=== PATIENT | male | born 1975 | race Caucasian/White ===

== ENCOUNTER 2019-02-10 18:27 | Inpatient (IN) ==
[2019-02-10] MEDS ORDERED: Ipratropium/Albuterol Neb 3 ML IH ONE (19:16)
--- NOTE | 2019-02-10 19:27 | Emergency Department Note ---
Disposition Clinical Impression: Multifocal pneumonia Sepsis Qualifiers: Sepsis type: sepsis due to unspecified organism Qualified Code(s): A41.9 - Sepsis, unspecified organism Pneumonia Qualifiers: Pneumonia type: due to unspecified organism Laterality: bilateral Lung location : unspecified part of lung Qualified Code(s): J18.9 - Pneumonia, unspecified organism Disposition: Admitted As Inpatient Condition: Fair Referrals: Priyanka Mukherjee CNP [Primary Care Provider] - Forms: ED Satisfaction Letter Time of Disposition: 21:03 General Adult HPI - General Chief complaint: ED Shortness of Breath/Dyspnea Stated complaint: Cough/Body aches Time Seen by Provider: 02/10/19 19:06 Source: patient, family Mode of arrival: ambulatory Limitations: no limitations Nursing Notes Reviewed: Yes Vital Signs Reviewed: Yes - History of Present Illness HPI Narrative: Patient is a 43-year-old male that presents emergency Department reports of shortness of breath. Patient is ongoing for the past couple of days. Patient denies any chest pain but states that he has generalized body aches and just does not feel well. Patient states that he has had a productive cough with clear sputum. Patient states that he feels like he is unable to catch his breath. Patient states that he is never really had anything like this before. Patient states that she is otherwise healthy. Patient states that he has had a low-grade fever of 99 at home. 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 Patient states that he has not been coughing up any blood. Patient states that he just feels like he cannot breathe normally. Pain Scale: 5 - Related Data Allergies Allergy/AdvReac Type Severity Reaction Status Date / Time acetaminophen [From Vicodin] Allergy Difficulty Verified 02/10/19 18:37 Breathing hydrocodone [From Vicodin] Allergy Difficulty Verified 02/10/19 18:37 Breathing All systems ED: reviewed and negative except as stated. Constitutional: Reports: fever, other (Generalized body aches) Cardiovascular: Denies: chest pain Respiratory: Reports: cough, dyspnea, sputum production. Denies: hemoptysis Gastrointestinal: Reports: nausea, vomiting. Denies: abdominal pain, diarrhea Genitourinary: Denies: urgency, dysuria, frequency Past Medical History - Past Medical History Medical history: Reports: no medical history Psychiatric history: Reports: no psych history - Social History Smoking Status: Current every day smoker Alcohol use: Reports: occasionally Drug use: Reports: none Physical Exam - General Limitations: no limitations General appearance: alert, in no apparent distress - Head Head exam: atraumatic, normocephalic - Eye Eye exam: Present: normal appearance, EOMI - Neck Neck exam: Present: normal inspection, full ROM, trachea midline - Respiratory Respiratory exam: Present: normal lung sounds bilaterally, other (Decreased air movement bilaterally). Absent: respiratory distress, wheezes - Cardiovascular Cardiovascular exam: Present: normal rhythm, tachycardia, normal heart sounds, +S1, +S2 - Abdominal Exam Abdominal exam: Present: soft, Non-Tender, normal bowel sounds - Neurological Exam Neurological exam: Present: alert, oriented X3 - Psychiatric Psychiatric exam: Present: normal affect, normal mood - Skin Skin exam: Present: warm, dry, intact Course Vital Signs Temperature 98.6 F 02/10/19 18:32 Pulse Rate 112 02/10/19 18:32 Respiratory Rate 19 02/10/19 18:32 Blood Pressure 112/69 02/10/19 18:32 O2 Sat by Pulse Oximetry 91 02/10/19 18:32 Temperature 98.6 F 02/10/19 18:32 Pulse Rate 112 02/10/19 18:32 Respiratory Rate 16 02/10/19 19:37 Blood Pressure 112/69 02/10/19 18:32 O2 Sat by Pulse Oximetry 92 02/10/19 19:37 Oxygen Delivery Oxygen Delivery Room Air Medical Decision Making - [facility] Narrative Medical decision making narrative: Due the patient presents emergency Department with reports of body aches cough and reports a fever at home and influenza swab was obtained at triage which is negative. We will also obtain basic laboratory testing as well as chest x-ray and EKG here in the emergency department. We will also provide the patient with a DuoNeb breathing treatment. Patient does have an elevated white blood cell count of 22.4. Based on his vital signs and his white blood cell count patient does meet surge criteria. The CTA of the chest did not show evidence of pulmonary emboli but is suggestive of multifocal pneumonia. Patient will be started on antibiotics and will be given 2 L of IV fluids. Patient will be admitted to the hospital for further evaluation and management of his sepsis secondary to pneumonia. Called spoke the admitting hospitalist Dr. Francisco and he requested that the patient be given a dose of vancomycin as well as started on maintenance fluids. Patient will be admitted to the hospital at this time for further evaluation and management of his sepsis and pneumonia. - Medical Records Medical records reviewed: Yes I reviewed the patient's medical records. - Lab Data Lab results reviewed: Yes I reviewed the patient's lab results. Result diagrams: 02/10/19 19:27 02/10/19 19:27 Lab Results 02/10/19 02/10/19 02/10/19 Range/Units 19:27 19: 19:27 WBC 22.4 H (4.3-11.1) K/mcL RBC 4.91 (4.19-5.50) M/mcL Hgb 15.5 (12.9-16.9) g/dL Hct 44.8 (37.5-50.1) % MCV 91.2 (83.0-100.0) fL MCH 31.6 (28.0-33.3) pg MCHC 34.6 (31.6-35.5) g/dL RDW 13.6 (11.5-14.5) % Plt Count 230 (140-400) K/mcL MPV 8.5 L (9.4-12.4) fL Immature Gran % 0.5 (0-4) % Seg Neutrophils % 86.1 % Lymphocytes % 6.4 % Monocytes % 6.5 % Eosinophils % 0.2 % Basophils % 0.3 % Neutrophils # 19.3 H (1.6-8.9) K/mcL Lymphocytes # 1.4 (0.6-4.6) K/mcL Monocytes # 1.5 H (0.0-1.3) K/mcL Eosinophils # 0.1 (0.0-0.6) K/mcL Basophils # 0.1 (0.0-0.2) K/mcL D-Dimer 915 H (0-500) ng/mLFEU Sodium 137 (136-145) mEq/L Potassium 4.1 (3.5-5.1) mEq/L Chloride 107 (98-107) mEq/L Carbon Dioxide 22 L (23-29) mEq/L BUN 16 (6-20) mg/dL Creatinine 0.91 (0.70-1.30) mg/dL Est GFR ( Amer) > 60 (> 60) Est GFR (Non-Af Amer) > 60 (> 60) BUN/Creatinine Ratio 18 (6-26) Glucose 105 (70-105) mg/dL Calculated Osmolality 286 (280-300) Calcium 9.3 (8.6-10.3) mg/dL Troponin I < 0.03 (< 0.04) ng/mL B-Natriuretic Peptide (Less than 100) pg/mL 02/10/19 Range/Units 19:27 WBC (4.3-11.1) K/mcL RBC (4.19-5.50) M/mcL Hgb (12.9-16.9) g/dL Hct (37.5-50.1) % MCV (83.0-100.0) fL MCH (28.0-33.3) pg MCHC (31.6-35.5) g/dL RDW (11.5-14.5) % Plt Count (140-400) K/mcL MPV (9.4-12.4) fL Immature Gran % (0-4) % Seg Neutrophils % % Lymphocytes % % Monocytes % % Eosinophils % % Basophils % % Neutrophils # (1.6-8.9) K/mcL Lymphocytes # (0.6-4.6) K/mcL Monocytes # (0.0-1.3) K/mcL Eosinophils # (0.0-0.6) K/mcL Basophils # (0.0-0.2) K/mcL D-Dimer (0-500) ng/mLFEU Sodium (136-145) mEq/L Potassium (3.5-5.1) mEq/L Chloride (98-107) mEq/L Carbon Dioxide (23-29) mEq/L BUN (6-20) mg/dL Creatinine (0.70-1.30) mg/dL Est GFR ( Amer) (> 60) Est GFR (Non-Af Amer) (> 60) BUN/Creatinine Ratio (6-26) Glucose (70-105) mg/dL Calculated Osmolality (280-300) Calcium (8.6-10.3) mg/dL Troponin I (< 0.04) ng/mL B-Natriuretic Peptide 19 (Less than 100) pg/mL - Radiology Data Radiology results reviewed: Yes I reviewed the patient's radiology results. Chest CTA 02/10/19 20:01 IMPRESSION: Negative for acute pulmonary embolism. Left lower lobe clustered/tree-in-bud nodularity and consolidation is suspicious for pneumonia versus aspiration sequela. Left upper lobe ground-glass abnormality may relate to the above or reflect smoking-related lung injury such as respiratory bronchiolitis given additional background centrilobular ground-glass nodularity and paraseptal emphysema which may be seen with this entity. Mediastinal/hilar lymphadenopathy is presumably reactive D/ / Elgin Jones / Elgin Jones Interpreting Provider: Elgin Jones - EKG Data EKG #1 EKG attestation: Yes I reviewed and interpreted this EKG. EKG results narrative: EKG shows a sinus tachycardia at a rate of 108 beats from it, DE interval 129, QRS duration of 87, QTc 433. No evidence of STEMI on EKG.
--- NOTE | 2019-02-10 19:43 | Emergency Department Note ---
Disposition Clinical Impression: Multifocal pneumonia Disposition: Admitted As Inpatient Condition: Good Referrals: Priyanka Mukherjee CNP [Primary Care Provider] - Forms: ED Satisfaction Letter General Adult HPI - General Chief complaint: ED Shortness of Breath/Dyspnea Stated complaint: Cough/Body aches Time Seen by Provider: 02/10/19 19:06 Source: patient, family Mode of arrival: ambulatory Limitations: no limitations - History of Present Illness Pain Scale: 5 - Related Data Allergies Allergy/AdvReac Type Severity Reaction Status Date / Time acetaminophen [From Vicodin] Allergy Difficulty Verified 02/10/19 18:37 Breathing hydrocodone [From Vicodin] Allergy Difficulty Verified 02/10/19 18:37 Breathing Constitutional: Reports: fever, other (Generalized body aches) Cardiovascular: Denies: chest pain Respiratory: Reports: cough, dyspnea, sputum production. Denies: hemoptysis Gastrointestinal: Reports: nausea, vomiting. Denies: abdominal pain, diarrhea Genitourinary: Denies: urgency, dysuria, frequency Past Medical History - Past Medical History Medical history: Reports: no medical history Psychiatric history: Reports: no psych history - Social History Smoking Status: Current every day smoker Alcohol use: Reports: occasionally Drug use: Reports: none Physical Exam - General Limitations: no limitations General appearance: alert, in no apparent distress Course Vital Signs Temperature 98.6 F 02/10/19 18:32 Pulse Rate 112 02/10/19 18:32 Respiratory Rate 19 02/10/19 18:32 Blood Pressure 112/69 02/10/19 18:32 O2 Sat by Pulse Oximetry 91 02/10/19 18:32 Temperature 98.6 F 02/10/19 18:32 Pulse Rate 112 02/10/19 18:32 Respiratory Rate 16 02/10/19 19:37 Blood Pressure 112/69 02/10/19 18:32 O2 Sat by Pulse Oximetry 92 02/10/19 19:37 Oxygen Delivery Oxygen Delivery Room Air Medical Decision Making - MDM Narrative Medical decision making narrative: IV Rocephin and IV Zithromax has been ordered for multifocal pneumonia. Patient is an active smoker. No signs of pulmonary embolus on a CT scan. Admit. - Medical Records Medical records reviewed: Yes I reviewed the patient's medical records. - Lab Data Lab results reviewed: Yes I reviewed the patient's lab results. Result diagrams: 02/10/19 19:27 02/10/19 19:27 Lab Results 02/10/19 02/10/19 02/10/19 Range/Units 19:27 19:27 19:27 WBC 22.4 H (4.3-11.1) K/mcL RBC 4.91 (4.19-5.50) M/mcL Hgb 15.5 (12.9-16.9) g/dL Hct 44.8 (37.5-50.1) % MCV 91.2 (83.0-100.0) fL MCH 31.6 (28.0-33.3) pg MCHC 34.6 (31.6-35.5) g/dL RDW 13.6 (11.5-14.5) % Plt Count 230 (140-400) K/mcL MPV 8.5 L (9.4-12.4) fL Immature Gran % 0.5 (0-4) % Seg Neutrophils % 86.1 % Lymphocytes % 6.4 % Monocytes % 6.5 % Eosinophils % 0.2 % Basophils % 0.3 % Neutrophils # 19.3 H (1.6-8.9) K/mcL Lymphocytes # 1.4 (0.6-4.6) K/mcL Monocytes # 1.5 H (0.0-1.3) K/mcL Eosinophils # 0.1 (0.0-0.6) K/mcL Basophils # 0.1 (0.0-0.2) K/mcL D-Dimer 915 H (0-500) ng/mLFEU Sodium 137 (136-145) mEq/L Potassium 4.1 (3.5-5.1) mEq/L Chloride 107 (98-107) mEq/L Carbon Dioxide 22 L (23-29) mEq/L BUN 16 (6-20) mg/dL Creatinine 0.91 (0.70-1.30) mg/dL Est GFR ( Amer) > 60 (> 60) Est GFR (Non-Af Amer) > 60 (> 60) BUN/Creatinine Ratio 18 (6-26) Glucose 105 (70-105) mg/dL Calculated Osmolality 286 (280-300) Calcium 9.3 (8.6-10.3) mg/dL Troponin I < 0.03 (< 0.04) ng/mL B-Natriuretic Peptide (Less than 100) pg/mL 02/10/19 Range/Units 19:27 WBC (4.3-11.1) K/mcL RBC (4.19-5.50) M/mcL Hgb (12.9-16.9) g/dL Hct (37.5-50.1) % MCV (83.0-100.0) fL MCH (28.0-33.3) pg MCHC (31.6-35.5) g/dL RDW (11.5-14.5) % Plt Count (140-400) K/mcL MPV (9.4-12.4) fL Immature Gran % (0-4) % Seg Neutrophils % % Lymphocytes % % Monocytes % % Eosinophils % % Basophils % % Neutrophils # (1.6-8.9) K/mcL Lymphocytes # (0.6-4.6) K/mcL Monocytes # (0.0-1.3) K/mcL Eosinophils # (0.0-0.6) K/mcL Basophils # (0.0-0.2) K/mcL D-Dimer (0-500) ng/mLFEU Sodium (136-145) mEq/L Potassium (3.5-5.1) mEq/L Chloride (98-107) mEq/L Carbon Dioxide (23-29) mEq/L BUN (6-20) mg/dL Creatinine (0.70-1.30) mg/dL Est GFR ( Amer) (> 60) Est GFR (Non-Af Amer) (> 60) BUN/Creatinine Ratio (6-26) Glucose (70-105) mg/dL Calculated Osmolality (280-300) Calcium (8.6-10.3) mg/dL Troponin I (< 0.04) ng/mL B-Natriuretic Peptide 19 (Less than 100) pg/mL - Radiology Data Radiology results reviewed: Yes I reviewed the patient's radiology results. Critical Care Time Critical Care Time: No Attestation Statement - Attestation Attestation: I examined this patient and my medical decision-making was reviewed with the Resident Physician. I agree with the documented findings, disposition and treatment plan as described except to the extent set forth below. 43 yo M here for cough, sob, flu like sx. coughing clear sputum. low grade fevers. myalgias, arthralgias. Neg flu swabs. +smoking tachy ad slightly hypoxic will check dimer and labs and cxr
[2019-02-10 19:49] LABS: Basophils # 0.1 K/mcL (0.0-0.2); Basophils % 0.3 %; Eosinophils # 0.1 K/mcL (0.0-0.6); Eosinophils % 0.2 %; Hematocrit 44.8 % (37.5-50.1); Hemoglobin 15.5 g/dL (12.9-16.9); Immature Granulocytes % 0.5 % (0-4); Lymphocytes # 1.4 K/mcL (0.6-4.6); Lymphocytes % 6.4 %; Mean Corpuscular HGB Conc 34.6 g/dL (31.6-35.5); Mean Corpuscular Hemoglobin 31.6 pg (28.0-33.3); Mean Corpuscular Volume 91.2 fL (83.0-100.0); Mean Platelet Volume 8.5 fL (9.4-12.4); Monocytes # 1.5 K/mcL (0.0-1.3); Monocytes % 6.5 %; Neutrophils # 19.3 K/mcL (1.6-8.9); Platelet Count 230 K/mcL (140-400); Red Blood Count 4.91 M/mcL (4.19-5.50); Red Cell Distribution Width 13.6 % (11.5-14.5); Segmented Neutrophils % 86.1 %
[2019-02-10 20:00] LABS: BUN/Creatinine Ratio 18 (6-26); Blood Urea Nitrogen 16 mg/dL (6-20); Calcium 9.3 mg/dL (8.6-10.3); Carbon Dioxide 22 mEq/L (23-29); Chloride 107 mEq/L (98-107); Glucose 105 mg/dL (70-105); Osmolality,Calculated 286 (280-300); Potassium 4.1 mEq/L (3.5-5.1); Sodium 137 mEq/L (136-145); Troponin I < 0.03 ng/mL (< 0.04); eGFR For Non-African Americans > 60 (> 60)
[2019-02-10] MEDS: Isovue-370 500 ML BOTTLE IVP ONE ×2 (20:25→20:26)
[2019-02-10] MEDS ORDERED: cefTRIAXone 1,000 MG in Water for inj. (sterile) 20 ML 10 ML IVP ONE (20:36)
[2019-02-10] MEDS ORDERED: Azithromycin 500 MG in D5% in Water 250 ML IVPB ONE (21:00)
[2019-02-10] MEDS ORDERED: Ondansetron 4 MG/2 ML VIAL IVP ONE (21:28)
[2019-02-10] MEDS: 0.9 % Sodium Chloride 1,000 ML IVC SCH (21:29)
[2019-02-11] MEDS: 0.9 % Sodium Chloride 1,000 ML IVC SCH ×4 (00:33→20:38)
[2019-02-11] MEDS: Acetaminophen 325 MG TABLET PO PRN (01:07)
[2019-02-11] MEDS ORDERED: Ibuprofen 400 MG TABLET PO PRN (06:32)
[2019-02-11] MEDS ORDERED: Naloxone 0.4 MG/ML INJ IVP PRN (06:32)
[2019-02-11] MEDS ORDERED: Ondansetron 4 MG/2 ML VIAL IVP PRN (06:32)
[2019-02-11] MEDS ORDERED: Albuterol 2.5 MG/3 ML NEBULIZER IH PRN (06:32)
--- NOTE | 2019-02-11 06:49 | Internal Med History&Physical ---
Date of Encounter: 02/11/19 Time of Encounter: 06:15 Internal Medicine - H&P: HPI Chief complaint: fever, cough, SOB Admitted From: Emergency Dept Plans for Post Hospital Care: Home History of present illness: Mr. Nam is a 43 year old male who presents with a three-day history of fever, cough, shortness of breath, nausea, vomiting, and malaise. He therefore came to ER for evaluation. He underwent CT angiogram of the chest as he and an elevated d-dimer. CTA of the chest was negative for PE, but it did show multifocal pneumonia. He also had an elevated white blood count and appeared to be clinically septic. Patient was given IV antibiotics for pneumonia. He was then admitted to hospitalist service. I requested they add vancomycin given his critical picture. Unfortunately, he has had no blood cultures drawn as of yet. He received 2 L of fluid resuscitation in the ER and was placed on IV fluid maintenance therapy. Upon my assessment of the patient, he appears to be ill but nontoxic. Blood pressure is borderline low, but he is not tachycardic. He appears to be well perfused nonetheless. He is mentating and acting normally. is present at bedside. She confirms above history. He denies any hemoptysis. He has had productive purulent sputum production. He is a long-time smoker but he states he is quitting now. He denies any prior history of asthma or COPD. He has never been hospitalized for any respiratory issues in the past. He has had multiple ill contacts in the recent past. Past Med Surg Social Fam HX - Past Medical History Attestation: Yes The following information was validated with the patient. Source: patient, obtained from family Medical history: no medical history Additional medical history: spinal meningitis 2013 Psychiatric history: no psych history - Past Surgical History Surgical History: no surgical history - Social History Smoking Status: Current every day smoker Packs per day: 2 Alcohol use: occasionally Drug use: none Occupational status: employed Current living situation: Home, With Family Activity Level: Independent ambulation Recent Out of Country Travel Within the Last 8 Weeks: No - Family History Mother Living Status: Still Living Hx Family Respiratory Disorders: No Father Living Status: Internal Medicine - H&P: Meds No Known Home Drugs 02/10/19 [History] Allergy/AdvReac Type Severity Reaction Status Date / Time hydrocodone [From Vicodin] Allergy Difficulty Verified 02/10/19 21:46 Breathing - Constitutional Constitutional: chills, fatigue, fever(s), malaise, no night sweats - EENT Eyes: no blurry vision, no change in vision Ears: no ear pain, no tinnitus Nose, mouth and throat: no nasal congestion, no sinus pressure, no sore throat - Cardiovascular Cardiovascular ROS IM: dyspnea, dyspnea on exertion, no chest pain, no lightheadedness, no palpitations, no paroxysmal nocturnal dyspnea, no syncope - Respiratory Respiratory: cough, dyspnea, wheezing, pain on inspiration, chest congestion, change in phlegm color, pain with cough, no hemoptysis, no excessive phlegm production - Gastrointestinal Gastrointestinal: nausea, vomiting, no abdominal pain, no diarrhea, no hematemesis, no hematochezia, no melena - Genitourinary Genitourinary ROS male: no dysuria, no flank pain, no hematuria - Musculoskeletal Musculoskeletal ROS IM: no arthralgias, no back pain, no myalgias - Integumentary Integumentary IM: no rash, no jaundice - Neurological Neurological ROS: no disequilibrium, no dizziness, no focal weakness, no frequent falls, no headache(s) - Psychiatric Psychiatric: no anxiety, no depression - Endocrine Endocrine IM: no cold intolerance, no heat intolerance, no polydipsia, no polyuria - Hematologic/Lymphatic Hematologic/Lymphatic: no easy bruising - Allergic/Immunologic Allergic/Immunologic: wheezing, no GI upset with certain foods - Constitutional Vitals: Temp Pulse Resp BP Pulse Ox 98.6 F 86 16 102/64 95 02/11/19 04:14 02/11/19 04:14 02/11/19 04:14 02/11/19 04:14 02/11/19 04:14 General appearance: Present: cooperative, mild distress, A&O X 3, pleasant, answers questions appropriately Exam: ill, non-toxic - Head Head exam: Present: atraumatic, normal inspection - Eye Eye exam: Present: EOMI, PERRL. Absent: scleral icterus Pupils: Present: normal accommodation - ENT ENT exam: Present: mucous membranes dry, normal exam, normal oropharynx - Neck Neck exam general surgery: Present: full ROM, supple, trachea midline. Absent: tenderness, nuchal rigidity, thyromegaly - Respiratory Respiratory exam: Present: accessory muscle use, rales, respiratory distress (mild), wheezes, tachypnea. Absent: chest wall tenderness, rhonchi - Cardiovascular Cardiovascular exam: Present: distant heart sounds, RRR, +S1, +S2. Absent: diastolic murmur, systolic murmur - GI/Abdominal GI/Abdominal exam: Present: normal bowel sounds, soft. Absent: guarding, hepatomegaly, mass, rebound, splenomegaly, tenderness - Extremities Exam Extremities exam: Present: normal capillary refill, warm, radial pulses palpable and symmetrical. Absent: calf tenderness, joint swelling, pedal edema, te nderness - Back Exam Back exam: Present: normal inspection. Absent: CVA tenderness (L), CVA tenderness (R) - Neurological Exam Neurological exam: Present: alert, CN II-XII intact, oriented X3, no focal deficits, strengths equal and symetr throughout - Psychiatric Psychiatric exam: Present: normal affect, normal mood - Skin Skin exam: Present: dry, intact, warm Internal Med - H&P Results - Labs CBC & Chem 7: 02/10/19 19:27 02/10/19 19:27 Labs: Short CBC 02/10/19 Range/Units 19:27 WBC 22.4 H (4.3-11.1) K/mcL Hgb 15.5 (12.9-16.9) g/dL Hct 44.8 (37.5-50.1) % Plt Count 230 (140-400) K/mcL Neutrophils # 19.3 H (1.6-8.9) K/mcL BMP 02/10/19 19:27 Sodium 137 Potassium 4.1 Chloride 107 Carbon Dioxide 22 L BUN 16 Creatinine 0.91 Glucose 105 Calcium 9.3 Cardiac Enzymes 02/10/19 Range/Units 19:27 Troponin I < 0.03 (< 0.04) ng/mL - EKG Data -: EKG Interpreted by Myself - EKG Data Prior EKG available for review: no EKG comments: 02/11/19 07:04 Sinus tachycardia; no acute changes - Impressions ITS Impressions Chest CTA 02/10/19 20:01 IMPRESSION: Negative for acute pulmonary embolism. Left lower lobe clustered/tree-in-bud nodularity and consolidation is suspicious for pneumonia versus aspiration sequela. Left upper lobe ground-glass abnormality may relate to the above or reflect smoking-related lung injury such as respiratory bronchiolitis given additional background centrilobular ground-glass nodularity and paraseptal emphysema which may be seen with this entity. Mediastinal/hilar lymphadenopathy is presumably reactive D/ / Elgin Jones / Elgin Jones Interpreting Provider: Elgin Jones - Diagnostic Studies CT scan - chest Status: image reviewed by me (multi) - Assessment and Plan (1) Multifocal pneumonia Current Visit: Yes Status: Acute Assessment and plan: 1. Will continue IV Vancomycin, Rocephin, and Zithromax. 2. Will order blood and sputum cultures as these were not done in ER. 3. Aerosols, oxygen, and steroids for supprotive measures. 4. May need BiPap if he decompensates. (2) Sepsis Current Visit: Yes Status: Acute Assessment and plan: 1. Will draw cultures as noted above. 2. IVF, antibiotics as above. 3. Trend lactate and monitor hemodynamics. Qualifiers: Sepsis type: sepsis due to unspecified organism Qualified Code(s): A41.9 - Sepsis, unspecified organism (3) DVT prophylaxis Current Visit: Yes Status: Acute Assessment and plan: 1. Heparin SQ. - Time Spent With Patient Total time spent is greater than 50% in coordination of care (as documented) at patient's floor/unit and/or counseling patient:
[2019-02-11] MEDS ORDERED: Azithromycin 500 MG in D5% in Water 250 ML IVPB SCH (07:00)
[2019-02-11] MEDS ORDERED: cefTRIAXone 2,000 MG in Water for inj. (sterile) 20 ML 20 ML IVP SCH ×2 (07:00→21:00)
[2019-02-11] MEDS: Ipratropium/Albuterol Neb 3 ML IH SCH ×5 (07:48→23:43)
[2019-02-11] MEDS ORDERED: 0.9 % Sodium Chloride 1,000 ML IVC ONE (07:59)
[2019-02-11] MEDS ORDERED: methylPREDNISolone 125 MG/2 ML VIAL IVP SCH (08:00)
[2019-02-11 08:21] LABS: Basophils # 0.1 K/mcL (0.0-0.2); Basophils % 0.3 %; Eosinophils # 0.2 K/mcL (0.0-0.6); Hematocrit 40.9 % (37.5-50.1); Immature Granulocytes % 0.3 % (0-4); Lymphocytes # 1.8 K/mcL (0.6-4.6); Lymphocytes % 11.5 %; Mean Corpuscular HGB Conc 33.7 g/dL (31.6-35.5); Mean Corpuscular Hemoglobin 31.2 pg (28.0-33.3); Mean Corpuscular Volume 92.5 fL (83.0-100.0); Mean Platelet Volume 8.7 fL (9.4-12.4); Monocytes # 0.7 K/mcL (0.0-1.3); Monocytes % 4.6 %; Neutrophils # 12.8 K/mcL (1.6-8.9); Platelet Count 188 K/mcL (140-400); Red Blood Count 4.42 M/mcL (4.19-5.50); Segmented Neutrophils % 82.3 %
[2019-02-11 08:22] LABS: Hemoglobin 13.8 g/dL (12.9-16.9)
[2019-02-11 08:34] LABS: INR 1.4; Prothrombin Time 15.9 Seconds (9.4-12.1)
[2019-02-11 08:36] LABS: Activated Partial Thrombo Time 30.4 Seconds (26.0-36.0)
[2019-02-11] MEDS: *HR* Heparin 5,000 UNIT/ML VIAL SQ SCH ×2 (08:37→15:16)
[2019-02-11 08:38] LABS: Alanine Aminotransferase 15 Units/L (7-52); Albumin 3.6 g/dL (3.5-5.7); Albumin/Globulin Ratio 1.6 (1.1-2.2); Alkaline Phosphatase 47 Units/L (34-104); Aspartate Amino Transferase 18 Units/L (13-39); BUN/Creatinine Ratio 15 (6-26); Bilirubin,Total 0.6 mg/dL (0.3-1.0); Blood Urea Nitrogen 13 mg/dL (6-20); Calcium 8.4 mg/dL (8.6-10.3); Carbon Dioxide 22 mEq/L (23-29); Chloride 111 mEq/L (98-107); Globulin 2.3 g/dL (2.4-3.5); Glucose 144 mg/dL (70-105); Magnesium 2.1 mg/dL (1.6-2.6); Osmolality,Calculated 295 (280-300); Potassium 4.4 mEq/L (3.5-5.1); Sodium 141 mEq/L (136-145); Total Protein 5.9 g/dL (6.4-8.9); eGFR For Non-African Americans > 60 (> 60)
--- NOTE | 2019-02-11 10:37 | Internal Med Progress Note ---
<Mecca Goff - Last Filed: 02/11/19 12:40> Hospitalist Progress Note - Encounter Date of Encounter: 02/11/19 - Exam Vitals: Temp Pulse Resp BP Pulse Ox 97.9 F 92 17 98/67 94 02/11/19 11:40 02/11/19 11:40 02/11/19 11:40 02/11/19 11:40 02/11/19 11:40 - Assessment and Plan (1) Multifocal pneumonia Current Visit: Yes Status: Acute (2) Sepsis Current Visit: Yes Status: Acute (3) DVT prophylaxis Current Visit: Yes Status: Acute - Time Spent with Patient Total time spent is greater than 50% in coordination of care (as documented) at patient's floor/unit and/or counseling patient: Internal Medicine: Result - Labs CBC & Chem 7: 02/11/19 08:06 02/11/19 08:06 Labs: Short CBC 02/10/19 02/11/19 Range/Units 19:27 08:06 WBC 22.4 H 15.5 H (4.3-11.1) K/mcL Hgb 15.5 13.8 D (12.9-16.9) g/dL Hct 44.8 40.9 (37.5-50.1) % Plt Count 230 188 (140-400) K/mcL Neutrophils # 19.3 H 12.8 H (1.6-8.9) K/mcL BMP 02/10/19 02/11/19 19:27 08:06 Sodium 137 141 Potassium 4.1 4.4 Chloride 107 111 H Carbon Dioxide 22 L 22 L BUN 16 13 Creatinine 0.91 0.88 Glucose 105 144 H Calcium 9.3 8.4 L Cardiac Enzymes 02/10/19 Range/Units 19:27 Troponin I < 0.03 (< 0.04) ng/mL Liver Function 02/11/19 Range/Units 08:06 Total Bilirubin 0.6 (0.3-1.0) mg/dL AST 18 (13-39) Units/L ALT 15 (7-52) Units/L Alkaline Phosphatase 47 (34-104) Units/L Albumin 3.6 (3.5-5.7) g/dL - ABG Interpretation ABG results: PT/INR, D-dimer PT 15.9 Seconds (9.4-12.1) H 02/11/19 08:06 D-Dimer 915 ng/mLFEU (0-500) H 02/10/19 19:27 - Impressions Impressions Chest CTA 02/10/19 20:01 IMPRESSION: Negative for acute pulmonary embolism. Left lower lobe clustered/tree-in-bud nodularity and consolidation is suspicious for pneumonia versus aspiration sequela. Left upper lobe ground-glass abnormality may relate to the above or reflect smoking-related lung injury such as respiratory bronchiolitis given additional background centrilobular ground-glass nodularity and paraseptal emphysema which may be seen with this entity. Mediastinal/hilar lymphadenopathy is presumably reactive D/ / Elgin Jones / Elgin Jones Interpreting Provider: Elgin Jones Consult Discharge Plan - Plan Referrals: Priyanka Mukherjee, PARTS REMOVER [Primary Care Provider] - - Attending Attestation I examined this patient and my medical decision-making was reviewed with the Resident Physician Dr Pagan. I agree with the documented findings, disposition and treatment plan as described except to the extent set forth below. Mr Camp is admitted with sepsis 2/2 pna. awake, at bedside. no fevers or chills. + nausea, no emesis today. + cough and wheezing. no lightheadedness, dizziness or chest pain with lower bps. gen- alert, awake,appears stated age eyes- pupils equal round cv- reg rate and rhythm, normal s1,s2, no murmurs appreciated, no le edema lungs- rhonchi left base and diminshed, no wheezing or crackles, normal resp effort on room air neuro- AAOx3 1.Sepsis 2/2 pna- lactate wnl, IVF bolus and MIVF, bp monitoring today, cont broad spectrum abx as below 2. Multifocal pna, organism not yet known- cont vanc + rocephin + azithro, will attempt to id organism, cont nebs and steroids IV further diagnoses and plan as noted by resident <Nevaeh Pagan - Last Filed: 02/11/19 15:29> Hospitalist Progress Note - Encounter Date of Encounter: 02/11/19 Time of Encounter: 09:00 - Subjective Interval History: 43 y/o M with 40 pk yr present with 4 days of feverm cough and shortness of breath. Patient reports coughing fits to point to nonbloody vomiting. Admits to periods of shaking but denies syncope, dizziness, chest pain and palpations. Denies history of COPD or asthma. - Exam Vitals: Temp Pulse Resp BP Pulse Ox 98.6 F 82 16 96/69 95 02/11/19 04:14 02/11/19 06:49 02/11/19 07:49 02/11/19 06:49 02/11/19 08:40 Exam: General: pleasant, with mild increase work of breathing, A&Ox3 Head: atraumatic, normocephalic, Mouth: mucous membranes moist, no mucosal lesions, no obvious caries Cardiac: RRR, no murmurs, no gallops Respiratory: coarse with decrease breath sounds in left lobes Abdomen: BSx4, Soft, not distended, no tenderness, no masses, no organomegaly Extremities: pulses intact, no pedal edema, normal ROM Psychiatric: normal mood and affect, intact memory, good judgment and insight - Assessment and Plan (1) Sepsis Current Visit: Yes Status: Acute Assessment and Plan: Sepsis due to PNA with hypotension responsive to fluids, SIRs criteria of tachycardic and febrile. No elevation in lactic acid - received total of 4 L IVF with another 1L this morning - continue maintain fluids 125 IVF - continue albuterol inhaler - continue antibiotic vanc, rocephin and azithromycin - screening nasal screen for deescalation - start cough medication prn - blood and sputum cultures obtained this morning after antibiotics - continue cardiac monitoring - oxygen supplement prn with nursing to titrate CTA chest negative for PE, LLL consolidation suspicous for PNA with ALFRED ground glass with nodularity suspicious for emphysema (2) Multifocal pneumonia Current Visit: Yes Status: Acute (3) Tobacco use disorder, continuous Current Visit: Yes Status: Chronic (4) COPD (chronic obstructive pulmonary disease) Current Visit: Yes Status: Suspected Assessment and Plan: Suspect undiagnosed COPD based on 40 pk yr history and emphysematous radiologic changes on CTA - recommend out patient follow up with PCP DVT Prophylaxis: heparin sq - Time Spent with Patient Total time spent is greater than 50% in coordination of care (as documented) at patient's floor/unit and/or counseling patient: Plan of Care Discussed with: patient Internal Medicine: Result - Labs CBC & Chem 7: 02/11/19 08:06 02/11/19 08:06 Labs: Short CBC 02/10/19 02/11/19 Range/Units 19:27 08:06 WBC 22.4 H 15.5 H (4.3-11.1) K/mcL Hgb 15.5 13.8 D (12.9-16.9) g/dL Hct 44.8 40.9 (37.5-50.1) % Plt Count 230 188 (140-400) K/mcL Neutrophils # 19.3 H 12.8 H (1.6-8.9) K/mcL BMP 02/10/19 02/11/19 19:27 08:06 Sodium 137 141 Potassium 4.1 4.4 Chloride 107 111 H Carbon Dioxide 22 L 22 L BUN 16 13 Creatinine 0.91 0.88 Glucose 105 144 H Calcium 9.3 8.4 L Cardiac Enzymes 02/10/19 Range/Units 19:27 Troponin I < 0.03 (< 0.04) ng/mL Liver Function 02/11/19 Range/Units 08:06 Total Bilirubin 0.6 (0.3-1.0) mg/dL AST 18 (13-39) Units/L ALT 15 (7-52) Units/L Alkaline Phosphatase 47 (34-104) Units/L Albumin 3.6 (3.5-5.7) g/dL - ABG Interpretation ABG results: PT/INR, D-dimer PT 15.9 Seconds (9.4-12.1) H 02/11/19 08:06 D-Dimer 915 ng/mLFEU (0-500) H 02/10/19 19:27 - Impressions Impressions Chest CTA 02/10/19 20:01 IMPRESSION: Negative for acute pulmonary embolism. Left lower lobe clustered/tree-in-bud nodularity and consolidation is suspicious for pneumonia versus aspiration sequela. Left upper lobe ground-glass abnormality may relate to the above or reflect smoking-related lung injury such as respiratory bronchiolitis given additional background centrilobular ground-glass nodularity and paraseptal emphysema which may be seen with this entity. Mediastinal/hilar lymphadenopathy is presumably reactive D/ / Elgin Jones / Elgin Jones Interpreting Provider: Elgin Jones <Mecca Goff M - Last Filed: 02/11/19 12:40> (2) Sepsis Qualifiers: Sepsis type: sepsis due to unspecified organism Qualified Code(s): A41.9 - Sepsis, unspecified organism <Nevaeh Pagan M - Last Filed: 02/11/19 15:29> (1) Sepsis Qualifiers: Sepsis type: sepsis due to unspecified organism Qualified Code(s): A41.9 - Sepsis, unspecified organism (4) COPD (chronic obstructive pulmonary disease) Qualifiers: COPD type: unspecified COPD Qualified Code(s): J44.9 - Chronic obstructive pulmonary disease, unspecified
[2019-02-11] MEDS: methylPREDNISolone 125 MG/2 ML VIAL IVP SCH ×2 (15:14→23:56)
--- NOTE | 2019-02-11 20:22 | Electrocardiograph Report ---
[place] [id number] Test Date: 2019-02-10 Pat Name: Saurabh Nam Department: [id number] Room: 2S1 Gender: M [employer]: : 1975 Requested By: To Sands Order Number: [id number] Reading MD: Radha Camp Measurements Intervals [place] Rate: 108 P: 62 GA: 129 QRS: 93 QRSD: 87 T: 30 QT: 323 QTc: 433 Interpretive Statements Sinus tachycardia Borderline right axis deviation Electronically Signed On 02-11-2019 20:20:53 EDT by Radha Camp
[2019-02-11] MEDS: Azithromycin 500 MG in D5% in Water 250 ML IVPB SCH (20:37)
[2019-02-11] MEDS: Levalbuterol 1 PUFF INHALER IH SCH (21:14)
[2019-02-12] MEDS: *HR* Heparin 5,000 UNIT/ML VIAL SQ SCH ×3 (00:02→17:23)
[2019-02-12] MEDS: Ipratropium/Albuterol Neb 3 ML IH SCH ×3 (03:49→11:17)
[2019-02-12] MEDS: Levalbuterol 1 PUFF INHALER IH SCH ×2 (03:49→08:08)
[2019-02-12 04:28] LABS: Basophils % 0.1 %; Hematocrit 36.4 % (37.5-50.1); Hemoglobin 12.9 g/dL (12.9-16.9); Immature Granulocytes % 0.7 % (0-4); Lymphocytes # 0.7 K/mcL (0.6-4.6); Lymphocytes % 3.1 %; Mean Corpuscular HGB Conc 35.4 g/dL (31.6-35.5); Mean Corpuscular Hemoglobin 34.6 pg (28.0-33.3); Mean Corpuscular Volume 97.6 fL (83.0-100.0); Mean Platelet Volume 9.2 fL (9.4-12.4); Monocytes # 0.6 K/mcL (0.0-1.3); Monocytes % 2.5 %; Neutrophils # 20.9 K/mcL (1.6-8.9); Platelet Count 207 K/mcL (140-400); Red Blood Count 3.73 M/mcL (4.19-5.50); Segmented Neutrophils % 93.6 %
[2019-02-12 04:37] LABS: BUN/Creatinine Ratio 20 (6-26); Blood Urea Nitrogen 14 mg/dL (6-20); Calcium 8.5 mg/dL (8.6-10.3); Carbon Dioxide 20 mEq/L (23-29); Chloride 115 mEq/L (98-107); Glucose 146 mg/dL (70-105); Osmolality,Calculated 293 (280-300); Potassium 4.4 mEq/L (3.5-5.1); Sodium 140 mEq/L (136-145); eGFR For Non-African Americans > 60 (> 60)
[2019-02-12] MEDS: methylPREDNISolone 125 MG/2 ML VIAL IVP SCH ×2 (07:47→17:22)
[2019-02-12] MEDS: 0.9 % Sodium Chloride 1,000 ML IVC SCH ×4 (07:48→22:17)
[2019-02-12] MEDS ORDERED: 0.9 % Sodium Chloride 500 ML IVC ONE (08:31)
--- NOTE | 2019-02-12 09:34 | Internal Med Progress Note ---
<Nevaeh Pagan M - Last Filed: 02/12/19 13:12> Hospitalist Progress Note - Encounter Date of Encounter: 02/12/19 Time of Encounter: 09:36 - Subjective Interval History: 43 y/o M hx of smoking admitted for PNA admits that cough and shortness of breath are unimproved. He has worsening of chronic left sided flank pain with inspiration. He admits to chills . Admits to shakes with albuterol treatment thus changed to zyponex yesterday. but denies dizziness, vision changes, chest pain or palpitations. Continued to be mildly hypotensive 109/67 overnight but did not require additional fluid bolus Per he had hypoxia over night while sleeping with saturation down to 80s then put on oxygen 2L but unrecorded in vitals. She reports that he has apniec spell and wakes short of breath. He admits to waking un rested a full night sle ep at baseline - Exam Vitals: Temp Pulse Resp BP Pulse Ox 97.5 F L 88 18 93/47 99 02/12/19 07:30 02/12/19 07:30 02/12/19 08:02 02/12/19 07:30 02/12/19 08:02 Exam: General: pleasant, in no acute distress, A&Ox3, obese Head: atraumatic, normocephalic, large wide neck Mouth: mucous membranes moist, no mucosal lesions, no obvious caries Cardiac: RRR, no murmurs, no gallops Respitoryl; difuse coarse , decreased breath wounds in left lobes increased from yesterday Abdomen: BSx4, Soft, not distended, no tenderness, no masses, no organomegaly Extremities: pulses intact, no pedal edema, normal ROM Psychiatric: normal mood and affect, intact memory, good judgement and insight - Assessment and Plan (1) Sepsis Current Visit: Yes Status: Acute Assessment and Plan: Sepsis due to PNA with poor response to fluids On admission SIRs criteria of tachycardic and febrile but lactic wnl Minimal response to fluid of 500 ml bolus this morning with BP improved from 93/47 to 103/62. Continue to monitor closely for fluid response - continue q4 vitals - continue NS IVF maintenance - continue zopenex inhaler - continue solumedrol 60 mg q 8r - start tesselon pearls, stop robitussion per patient request Change antibiotics as MRSA screen negative and influenza negative - discontinue vancomycin and rocephin day 2 - start zosyn - continue azithromycin day - 3-21 blood cultures pending - sputum culture ordered not yet obtained 02-10-19 CTA chest negative for PE, LLL consolidation suspicous for PNA with ALFRED ground glass with nodularity suspicious for emphysema (2) Multifocal pneumonia Current Visit: Yes Status: Acute Assessment and Plan: see above (3) Tobacco use disorder, continuous Current Visit: Yes Status: Chronic (4) COPD (chronic obstructive pulmonary disease) Current Visit: Yes Status: Suspected Assessment and Plan: Suspected based on CT - need out patient PFT (5) WALI (obstructive sleep apnea) Current Visit: Yes Status: Suspected Assessment and Plan: Suspect based on witnessed apnea spells and waking unrested. At risk with obese and large neck circumference. - Time Spent with Patient Total time spent is greater than 50% in coordination of care (as documented) at patient's floor/unit and/or counseling patient: Plan of Care Discussed with: patient Internal Medicine: Result - Labs CBC & Chem 7: 02/12/19 03:29 02/12/19 03:29 Labs: Short CBC 02/12/19 Range/Units 03:29 WBC 22.4 H (4.3-11.1) K/mcL Hgb 12.9 (12.9-16.9) g/dL Hct 36.4 L (37.5-50.1) % Plt Count 207 (140-400) K/mcL Neutrophils # 20.9 H (1.6-8.9) K/mcL BMP 02/12/19 03:29 Sodium 140 Potassium 4.4 Chloride 115 H Carbon Dioxide 20 L BUN 14 Creatinine 0.69 L Glucose 146 H Calcium 8.5 L - ABG Interpretation ABG results: PT/INR, D-dimer PT 15.9 Seconds (9.4-12.1) H 02/11/19 08:06 D-Dimer 915 ng/mLFEU (0-500) H 02/10/19 19:27 Consult Discharge Plan - Plan Referrals: Priyanka Mukherjee, SCREEN TACKER [Primary Care Provider] - <Mecca Goff - Last Filed: 02/12/19 13:37> Hospitalist Progress Note - Encounter Date of Encounter: 02/12/19 - Exam Vitals: Temp Pulse Resp BP Pulse Ox 97.6 F 114 22 103/62 92 02/12/19 11:31 02/12/19 11:31 02/12/19 11:31 02/12/19 11:31 02/12/19 11:31 - Assessment and Plan (1) Multifocal pneumonia Current Visit: Yes Status: Acute (2) Sepsis Current Visit: Yes Status: Acute (3) DVT prophylaxis Current Visit: Yes Status: Acute - Time Spent with Patient Total time spent is greater than 50% in coordination of care (as documented) at patient's floor/unit and/or counseling patient: Internal Medicine: Result - Labs CBC & Chem 7: 02/12/19 03:29 02/12/19 03:29 Labs: Short CBC 02/12/19 Range/Units 03:29 WBC 22.4 H (4.3-11.1) K/mcL Hgb 12.9 (12.9-16.9) g/dL Hct 36.4 L (37.5-50.1) % Plt Count 207 (140-400) K/mcL Neutrophils # 20.9 H (1.6-8.9) K/mcL BMP 02/12/19 03:29 Sodium 140 Potassium 4.4 Chloride 115 H Carbon Dioxide 20 L BUN 14 Creatinine 0.69 L Glucose 146 H Calcium 8.5 L - ABG Interpretation ABG results: PT/INR, D-dimer PT 15.9 Seconds (9.4-12.1) H 02/11/19 08:06 D-Dimer 915 ng/mLFEU (0-500) H 02/10/19 19:27 - Attending Attestation I examined this patient and my medical decision-making was reviewed with the Resident Physician Dr Pagan. I agree with the documented findings, disposition and treatment plan as described except to the extent set forth below. Mr Camp is admitted with sepsis 2/2 pna. awake, at bedside. hot sweats and chills last night. feeling fatigue, and sob. won't wear his o2 nc even with insisting as he drops low 90s and has sxs. he is agreeable to wearing it now. admits to lightheadeness. notes he is somewhat unsteady on his feet. He will only ambulate to bathroom assisted and verbalized good understanding. gen- alert, awake,appears stated age cv- tachy rate (low 100s on tele) and reg rhythm, normal s1,s2, no murmurs appreciated lungs- rhonchi left base and diminshed, no wheezing or crackles, normal resp effort on 02 nc skin- warm, dry, no mottling neuro- AAOx3 1.Sepsis 2/2 pna- IVF, bp monitoring today and low threshold for pressors if BP does not improve this morning awake and with fluids, cont broad spectrum abx 2. Multifocal pna, organism not yet known- mrsa neg, dc vanc- broaden to zosyn + azithro, cont nebs and steroids IV further diagnoses and plan as noted by resident <Nevaeh Pagan M - Last Filed: 02/12/19 13:12> (1) Sepsis Qualifiers: Sepsis type: sepsis due to unspecified organism Qualified Code(s): A41.9 - Sepsis, unspecified organism (4) COPD (chronic obstructive pulmonary disease) Qualifiers: COPD type: unspecified COPD Qualified Code(s): J44.9 - Chronic obstructive pulmonary disease, unspecified <Mecca Goff M - Last Filed: 02/12/19 13:37> (2) Sepsis Qualifiers: Sepsis type: sepsis due to unspecified organism Qualified Code(s): A41.9 - Sepsis, unspecified organism
[2019-02-12] MEDS ORDERED: Benzonatate 100 MG CAPSULE PO PRN (12:07)
[2019-02-12] MEDS: Piperacillin/Tazobactam 3.375 GM in 0.9 % Sodium Chloride Mini Bag 100 ML IVPB SCH ×2 (14:36→22:12)
[2019-02-12] MEDS ORDERED: Ipratropium Neb 0.5 MG NEBULIZER IH PRN (15:35)
[2019-02-12] MEDS: Levalbuterol Neb 0.63 MG/3 ML IH SCH ×2 (16:47→23:06)
[2019-02-12] MEDS: Azithromycin 500 MG in D5% in Water 250 ML IVPB SCH (20:57)
[2019-02-13] MEDS: *HR* Heparin 5,000 UNIT/ML VIAL SQ SCH ×5 (00:05→23:15)
[2019-02-13] MEDS: methylPREDNISolone 125 MG/2 ML VIAL IVP SCH ×4 (00:05→22:38)
[2019-02-13] MEDS: Levalbuterol Neb 0.63 MG/3 ML IH SCH ×4 (03:54→22:52)
[2019-02-13] MEDS: Piperacillin/Tazobactam 3.375 GM in 0.9 % Sodium Chloride Mini Bag 100 ML IVPB SCH ×3 (06:12→22:37)
[2019-02-13 06:23] LABS: Basophils % 0.1 %; Hematocrit 35.6 % (37.5-50.1); Immature Granulocytes % 1.3 % (0-4); Lymphocytes % 4.4 %; Mean Corpuscular HGB Conc 36.5 g/dL (31.6-35.5); Mean Corpuscular Hemoglobin 35.5 pg (28.0-33.3); Mean Corpuscular Volume 97.3 fL (83.0-100.0); Monocytes # 0.8 K/mcL (0.0-1.3); Monocytes % 3.3 %; Neutrophils # 20.9 K/mcL (1.6-8.9); Platelet Count 237 K/mcL (140-400); Red Blood Count 3.66 M/mcL (4.19-5.50); Red Cell Distribution Width 15.3 % (11.5-14.5); Segmented Neutrophils % 90.9 %
[2019-02-13] MEDS: 0.9 % Sodium Chloride 1,000 ML IVC SCH ×3 (08:12→21:52)
--- NOTE | 2019-02-13 08:39 | Internal Med Progress Note ---
<Mecca Goff - Last Filed: 02/13/19 16:01> Hospitalist Progress Note - Encounter Date of Encounter: 02/13/19 - Exam Vitals: Temp Pulse Resp BP Pulse Ox 97.4 F L 92 16 125/70 93 02/13/19 14:44 02/13/19 14:44 02/13/19 14:44 02/13/19 14:44 02/13/19 14:44 - Assessment and Plan (1) Multifocal pneumonia Current Visit: Yes Status: Acute (2) Sepsis Current Visit: Yes Status: Acute (3) DVT prophylaxis Current Visit: Yes Status: Acute - Time Spent with Patient Total time spent is greater than 50% in coordination of care (as documented) at patient's floor/unit and/or counseling patient: Internal Medicine: Result - Labs CBC & Chem 7: 02/13/19 06:10 02/12/19 03:29 Labs: Short CBC 02/13/19 Range/Units 06:10 WBC 23.0 H (4.3-11.1) K/mcL Hgb 13.0 (12.9-16.9) g/dL Hct 35.6 L (37.5-50.1) % Plt Count 237 (140-400) K/mcL Neutrophils # 20.9 H (1.6-8.9) K/mcL - ABG Interpretation ABG results: PT/INR, D-dimer PT 15.9 Seconds (9.4-12.1) H 02/11/19 08:06 D-Dimer 915 ng/mLFEU (0-500) H 02/10/19 19:27 - Impressions Impressions Chest X-Ray 02/13/19 09:48 IMPRESSION: Diffuse bilateral airspace opacities consistent with multifocal pneumonia, left more than right. D/ / Reg Viveros MD / Reg Viveros MD Interpreting Provider: Reg Viveros MD Consult Discharge Plan - Plan Referrals: Priyanka Mukherjee, CAMP NURSE [Primary Care Provider] - - Attending Attestation I examined this patient and my medical decision-making was reviewed with the Resident Physician Dr Gay. I agree with the documented findings, disposition and treatment plan as described except to the extent set forth below. Mr Nam is admitted with sepsis 2/2 pna. awake, at bedside.improved energy today. still with sob and higher o2 requirement. feels much better with actually wearing o2. no fevers, chills, nv. still unable to bring up sputum gen- alert, awake,appears stated age cv- reg rate and reg rhythm, normal s1,s2, no murmurs appreciated lungs- left base diminished, no wheezing or crackles, normal resp effort on 02 nc skin- warm, dry neuro- AAOx3 1.Sepsis 2/2 pna- BP improving significantly, can begin to decrease IVF, cont abx as below 2. Multifocal pna, organism not yet known- mrsa neg, zosyn + azithro, cont nebs , begin to slowly decrease steroids IV further diagnoses and plan as noted by resident <Jose J Gay - Last Filed: 02/13/19 19:38> Hospitalist Progress Note - Encounter Date of Encounter: 02/13/19 Time of Encounter: 09:00 - Subjective Interval History: Patient is a pleasant 42-year-old male who initially presented to the ED because of shortness of breath and has been diagnosed with multifocal pneumonia in left lower lobe. He is currently on the day 2 of the Zosyn and day 4 of azithromyci n. Continues to be on IV steroids for his pneumonia. Clinically he seems to be improving is hypotensive at the moment (135/87), continues to be on maintenance fluids, is afebrile but has an elevated WBC . Lung sounds are clear to auscultation bilaterally but patient had received as inhaler treatment right before I entered the room therefore I'll reexamine him in the next couple hours to see if his lung sounds have changed. Patient has increased need for oxygen this morning when I saw him (~2L) . He was also coughing extensively but the nature of cough was dry. Patient's CXR showed diffuse bilateral lung opacities wit no evidence of pleural effusion. - Exam Vitals: Temp Pulse Resp BP Pulse Ox 97.5 F L 94 16 140/58 95 02/13/19 07:39 02/13/19 07:39 02/13/19 07:39 02/13/19 07:39 02/13/19 07:52 Exam: Gen.: Vitals noted. No acute distress. AAOx3, resting comfortably in bed. HEENT: PERRL/EOMI, oropharynx clear, Normocephalic, atraumatic, MMM Cardiac: RRR, no murmur, +S1/S2, 2+ BLE edema, R>L Pulmonary: Decreased breath sounds in the left lung base, equal chest expansion, unlabored breathing Abdomen: soft, non-tender, BS noted, no guarding, no palpable HSM. No abdominal bruits appreciated Skin: warm and dry, no visible lesions. MSK: ROM intact, no joint swelling noted, gait no assessed while in bed. Non tender calf or clubbing Neuro: A&Ox3, moves all extremities, no focal deficits, sensation intact, CN grossly intact Psych: Appropriate mood and behavior, AOx3 - Assessment and Plan (1) Sepsis Current Visit: Yes Status: Acute Assessment and Plan: - On admission SIRs criteria of tachycardic and febrile but lactic wnl - Patient currently meets SIRS criteria with HR: 9&, RR: 20, WBC: 23.0 but afebrile - likely due to findings of mutifocal PNA. - patient has no known Hx of COPD, URI, no sick contacts no recent travels. - His chest CT was positive for a left lower lobe consolidation with concerns for pneumonia versus aspiration sequelae he also had some left upper lobe groundglass abnormality concerns for a respiratory bronchiolitis. -Chest x-ray this morning showed bilateral opacities concerns for multifocal pneumonia, but there was no evidence for pleural effusion or pneumothorax. -Patient's respiratory infection panel, Legionella urine antigen was negative -Patient's MRSA swab was negative therefore his vancomycin was discontinued. He continues to be on no day 2 of Zosyn along with day 3 of azithromycin for atypical coverage - blood cultures NGTD PLAN: - He will continue Zithromax for a total of 5 days, is on day 2 of zosyn -Continues to be on maintenance fluid at 75 ml/hr. - blood cultures pending. - continue zopenex for bronchodilation -Tessalon Perles for cough control -Continue IV steroids at 60 mg every 12 hours -Incentive spirometry to rectify the VQ mismatch -We will continue to monitor (2) Multifocal pneumonia Current Visit: Yes Status: Acute Assessment and Plan: - same as above. (3) DVT prophylaxis Current Visit: Yes Status: Acute Assessment and Plan: 1. Heparin SQ. - Time Spent with Patient Total time spent is greater than 50% in coordination of care (as documented) at patient's floor/unit and/or counseling patient: Internal Medicine: Result - Labs CBC & Chem 7: 02/13/19 06:10 02/12/19 03:29 Labs: Short CBC 02/13/19 Range/Units 06:10 WBC 23.0 H (4.3-11.1) K/mcL Hgb 13.0 (12.9-16.9) g/dL Hct 35.6 L (37.5-50.1) % Plt Count 237 (140-400) K/mcL Neutrophils # 20.9 H (1.6-8.9) K/mcL - ABG Interpretation ABG results: PT/INR, D-dimer PT 15.9 Seconds (9.4-12.1) H 02/11/19 08:06 D-Dimer 915 ng/mLFEU (0-500) H 02/10/19 19:27 <Mecca Goff - Last Filed: 02/13/19 16:01> (2) Sepsis Qualifiers: Sepsis type: sepsis due to unspecified organism Qualified Code(s): A41.9 - Sepsis, unspecified organism <Jose J Gay - Last Filed: 02/13/19 19:38> (1) Sepsis Qualifiers: Sepsis type: sepsis due to unspecified organism Qualified Code(s): A41.9 - Sepsis, unspecified organism
[2019-02-13 11:33] LABS: Adenovirus Not Detected (Not Detect); Bordetella Pertussis Not Detected (Not Detect); Chlamydophila pneumoniae Not Detected (Not Detect); Coronavirus 229E Not Detected (Not Detect); Coronavirus HKU1 Not Detected (Not Detect); Coronavirus NL63 Not Detected (Not Detect); Coronavirus OC43 Not Detected (Not Detect); Human Metapneumovirus Not Detected (Not Detect); Human Rhinovirus/Enterovirus Not Detected (Not Detect); Influenza A Subtype 2009 H1 Not Detected (Not Detect); Influenza A Untypeable Not Detected (Not Detect); Influenza B Not Detected (Not Detect); Mycoplasma pneumoniae Not Detected (Not Detect); Parainfluenza Virus 1 Not Detected (Not Detect); Parainfluenza Virus 2 Not Detected (Not Detect); Parainfluenza Virus 3 Not Detected (Not Detect); Parainfluenza Virus 4 Not Detected (Not Detect); Respiratory Syncytial Virus Not Detected (Not Detect)
[2019-02-13] MEDS: Azithromycin 500 MG in D5% in Water 250 ML IVPB SCH (20:05)
[2019-02-14] MEDS: Levalbuterol Neb 0.63 MG/3 ML IH SCH ×4 (04:00→22:36)
[2019-02-14] MEDS: Piperacillin/Tazobactam 3.375 GM in 0.9 % Sodium Chloride Mini Bag 100 ML IVPB SCH ×3 (05:27→23:19)
[2019-02-14] MEDS: 0.9 % Sodium Chloride 1,000 ML IVC SCH ×2 (05:30→08:43)
[2019-02-14 08:06] LABS: BUN/Creatinine Ratio 30 (6-26); Blood Urea Nitrogen 24 mg/dL (6-20); Calcium 8.9 mg/dL (8.6-10.3); Carbon Dioxide 28 mEq/L (23-29); Chloride 108 mEq/L (98-107); Glucose 132 mg/dL (70-105); Osmolality,Calculated 300 (280-300); Potassium 4.1 mEq/L (3.5-5.1); Sodium 142 mEq/L (136-145); eGFR For Non-African Americans > 60 (> 60)
[2019-02-14] MEDS: methylPREDNISolone 125 MG/2 ML VIAL IVP SCH (08:43)
[2019-02-14] MEDS: *HR* Heparin 5,000 UNIT/ML VIAL SQ SCH ×2 (08:47→14:26)
[2019-02-14 09:53] LABS: Basophils % 0.2 %; Hematocrit 36.9 % (37.5-50.1); Hemoglobin 12.5 g/dL (12.9-16.9); Immature Granulocytes % 1.3 % (0-4); Immature Platelets 2.7 % (1.1-6.1); Lymphocytes # 1.2 K/mcL (0.6-4.6); Lymphocytes % 7.9 %; Mean Corpuscular HGB Conc 33.9 g/dL (31.6-35.5); Mean Corpuscular Hemoglobin 33.1 pg (28.0-33.3); Mean Corpuscular Volume 97.6 fL (83.0-100.0); Mean Platelet Volume 9.2 fL (9.4-12.4); Monocytes # 0.7 K/mcL (0.0-1.3); Monocytes % 4.8 %; Neutrophils # 12.8 K/mcL (1.6-8.9); Platelet Count 229 K/mcL (140-400); Red Blood Count 3.78 M/mcL (4.19-5.50); Red Cell Distribution Width 15.4 % (11.5-14.5); Segmented Neutrophils % 85.8 %
[2019-02-14] MEDS ORDERED: Aminoglycoside Consult 1 EACH MC ONE (11:22)
--- NOTE | 2019-02-14 13:31 | Internal Med Progress Note ---
<Mecca Goff - Last Filed: 02/14/19 14:26> Hospitalist Progress Note - Encounter Date of Encounter: 02/14/19 - Exam Vitals: Temp Pulse Resp BP Pulse Ox 97.6 F 72 18 143/83 92 02/14/19 11:38 02/14/19 11:38 02/14/19 11:38 02/14/19 11:38 02/14/19 11:38 - Assessment and Plan (1) Multifocal pneumonia Current Visit: Yes Status: Acute (2) Sepsis Current Visit: Yes Status: Acute (3) DVT prophylaxis Current Visit: Yes Status: Acute - Time Spent with Patient Total time spent is greater than 50% in coordination of care (as documented) at patient's floor/unit and/or counseling patient: Internal Medicine: Result - Labs CBC & Chem 7: 02/14/19 06:56 02/14/19 06:56 Labs: Short CBC 02/14/19 Range/Units 06:56 WBC 14.9 H (4.3-11.1) K/mcL Hgb 12.5 L (12.9-16.9) g/dL Hct 36.9 L (37.5-50.1) % Plt Count 229 (140-400) K/mcL Neutrophils # 12.8 H (1.6-8.9) K/mcL BMP 02/14/19 06:56 Sodium 142 Potassium 4.1 Chloride 108 H Carbon Dioxide 28 BUN 24 H Creatinine 0.80 Glucose 132 H Calcium 8.9 - ABG Interpretation ABG results: PT/INR, D-dimer PT 15.9 Seconds (9.4-12.1) H 02/11/19 08:06 D-Dimer 915 ng/mLFEU (0-500) H 02/10/19 19:27 Consult Discharge Plan - Plan Referrals: Priyanka Mukherjee, PRICE CHANGER [Primary Care Provider] - - Attending Attestation I examined this patient and my medical decision-making was reviewed with the Resident Physician Dr Gay. I agree with the documented findings, disposition and treatment plan as described except to the extent set forth below. Mr Nam is admitted with sepsis 2/2 pna. awake, at bedside.continued sob at rest and with exertion. no fevers, chills, n/v. no wheezing. + dry cough, no sputum. discussed emphysematous changes on CT scan. Improved leukocytosis. Pt pleasant. gen- alert, awake,appears stated age cv- reg rate and reg rhythm, normal s1,s2, no murmurs appreciated, no pitting le edema lungs- limproved aeration left base, no wheezing or crackles, no rhonchi, diffusely diminished but iproving normal resp effort on 02 nc neuro- AAOx3 1.Sepsis 2/2 pna- BP now elevated, stop ivfs, cont abx as below 2. Multifocal pna, organism not yet known- mrsa neg, zosyn + azithro, cont nebs , transition to oral steroids in am 3. Emphysema on CT scan- outpt pfts upon dc as this is new diagnosis 4. Incidental hepatic suspected small cysts, on review he had CT scan a/p in 01/2017 with same finding- will recommend pcp follow up outpt for this chronic issue further diagnoses and plan as noted by resident <Jose J Gay - Last Filed: 02/14/19 19:15> Hospitalist Progress Note - Encounter Date of Encounter: 02/14/19 Time of Encounter: 09:00 - Subjective Interval History: No acute events overnight. Patient is doing well today with his white blood count trending down from a 23 to 14.9. Blood pressure is well-controlled. His been transitioned from IV Solu-Medrol to by mouth prednisone. Patient continues to be on maintenance fluid at 125 ml/hr - Exam Vitals: Temp Pulse Resp BP Pulse Ox 97.6 F 72 18 143/83 92 02/14/19 11:38 02/14/19 11:38 02/14/19 11:38 02/14/19 11:38 02/14/19 11:38 Exam: Gen.: Vitals noted. No acute distress. AAOx3, resting comfortably in bed. HEENT: PERRL/EOMI, oropharynx clear, Normocephalic, atraumatic, MMM Cardiac: RRR, no murmur, +S1/S2, 2+ BLE edema, R>L Pulmonary: Decreased breath sounds in the left lung base, equal chest expansion, unlabored breathing Abdomen: soft, non-tender, BS noted, no guarding, no palpable HSM. No abdominal bruits appreciated Skin: warm and dry, no visible lesions. MSK: ROM intact, no joint swelling noted, gait no assessed while in bed. Non tender calf or clubbing Neuro: A&Ox3, moves all extremities, no focal deficits, sensation intact, CN grossly intact Psych: Appropriate mood and behavior, AOx3 - Assessment and Plan (1) Sepsis Current Visit: Yes Status: Acute Assessment and Plan: - On admission SIRs criteria of tachycardic and febrile but lactic wnl - Patient currently meets SIRS criteria with HR: 9&, RR: 20, WBC: 23.0 but afebrile - likely due to findings of mutifocal PNA. - patient has no known Hx of COPD, URI, no sick contacts no recent travels. - His chest CT was positive for a left lower lobe consolidation with concerns for pneumonia versus aspiration sequelae he also had some left upper lobe groundglass abnormality concerns for a respiratory bronchiolitis. -Chest x-ray this morning showed bilateral opacities concerns for multifocal pneumonia, but there was no evidence for pleural effusion or pneumothorax. -Patient's respiratory infection panel, Legionella urine antigen was negative -Patient's MRSA swab was negative therefore his vancomycin was discontinued. He continues to be on no day 2 of Zosyn along with day 3 of azithromycin for atypical coverage - blood cultures NGTD PLAN: - He will continue Zithromax for a total of 5 days, is on day 3 of zosyn -Continues to be on maintenance fluid at 125 ml/hr. - blood cultures pending. - continue zopenex for bronchodilation -Tessalon Perles for cough control -on PO prednisone 40mg -Incentive spirometry to rectify the VQ mismatch -Has baseline emphysema on imaging and will need PFTs as an outpatient -We will continue to monitor (2) Multifocal pneumonia Current Visit: Yes Status: Acute Assessment and Plan: - same as above. (3) DVT prophylaxis Current Visit: Yes Status: Acute Assessment and Plan: 1. Heparin SQ. - Time Spent with Patient Total time spent is greater than 50% in coordination of care (as documented) at patient's floor/unit and/or counseling patient: Internal Medicine: Result - Labs CBC & Chem 7: 02/14/19 06:56 02/14/19 06:56 Labs: Short CBC 02/14/19 Range/Units 06:56 WBC 14.9 H (4.3-11.1) K/mcL Hgb 12.5 L (12.9-16.9) g/dL Hct 36.9 L (37.5-50.1) % Plt Count 229 (140-400) K/mcL Neutrophils # 12.8 H (1.6-8.9) K/mcL BMP 02/14/19 06:56 Sodium 142 Potassium 4.1 Chloride 108 H Carbon Dioxide 28 BUN 24 H Creatinine 0.80 Glucose 132 H Calcium 8.9 - ABG Interpretation ABG results: PT/INR, D-dimer PT 15.9 Seconds (9.4-12.1) H 02/11/19 08:06 D-Dimer 915 ng/mLFEU (0-500) H 02/10/19 19:27 <Mecca Goff - Last Filed: 02/14/19 14:26> (2) Sepsis Qualifiers: Sepsis type: sepsis due to unspecified organism Qualified Code(s): A41.9 - Sepsis, unspecified organism <Jose J Gay - Last Filed: 02/14/19 19:15> (1) Sepsis Qualifiers: Sepsis type: sepsis due to unspecified organism Qualified Code(s): A41.9 - Sepsis, unspecified organism
[2019-02-14] MEDS: Azithromycin 500 MG in D5% in Water 250 ML IVPB SCH (21:04)
[2019-02-15] MEDS: Levalbuterol Neb 0.63 MG/3 ML IH SCH ×3 (04:22→15:44)
[2019-02-15 05:10] LABS: Basophils # 0.1 K/mcL (0.0-0.2); Basophils % 0.3 %; Eosinophils % 0.1 %; Hematocrit 37.3 % (37.5-50.1); Hemoglobin 13.5 g/dL (12.9-16.9); Immature Platelets 1.4 % (1.1-6.1); Lymphocytes # 2.2 K/mcL (0.6-4.6); Lymphocytes % 14.1 %; Mean Corpuscular HGB Conc 36.2 g/dL (31.6-35.5); Mean Corpuscular Hemoglobin 34.9 pg (28.0-33.3); Mean Corpuscular Volume 96.4 fL (83.0-100.0); Mean Platelet Volume 8.9 fL (9.4-12.4); Monocytes % 6.4 %; Neutrophils # 12.1 K/mcL (1.6-8.9); Nucleated Red Blood Cells 0.2 /100 WBC (0); Platelet Count 284 K/mcL (140-400); Red Blood Count 3.87 M/mcL (4.19-5.50); Red Cell Distribution Width 15.4 % (11.5-14.5); Segmented Neutrophils % 77.1 %
[2019-02-15 05:11] LABS: BUN/Creatinine Ratio 29 (6-26); Blood Urea Nitrogen 23 mg/dL (6-20); Calcium 8.9 mg/dL (8.6-10.3); Carbon Dioxide 28 mEq/L (23-29); Chloride 106 mEq/L (98-107); Glucose 90 mg/dL (70-105); Osmolality,Calculated 293 (280-300); Potassium 3.7 mEq/L (3.5-5.1); Sodium 140 mEq/L (136-145); eGFR For Non-African Americans > 60 (> 60)
[2019-02-15] MEDS: Piperacillin/Tazobactam 3.375 GM in 0.9 % Sodium Chloride Mini Bag 100 ML IVPB SCH ×3 (06:29→21:37)
[2019-02-15] MEDS: *HR* Heparin 5,000 UNIT/ML VIAL SQ SCH ×2 (08:11→15:37)
[2019-02-15] MEDS: predniSONE 20 MG TABLET PO SCH (08:12)
[2019-02-15] MEDS: Acetaminophen 325 MG TABLET PO PRN (10:58)
--- NOTE | 2019-02-15 11:15 | Internal Med Progress Note ---
<Mecca Goff - Last Filed: 02/15/19 12:11> Hospitalist Progress Note - Encounter Date of Encounter: 02/15/19 - Exam Vitals: Temp Pulse Resp BP Pulse Ox 98.3 F 93 18 111/68 90 02/15/19 11:45 02/15/19 11:45 02/15/19 11:45 02/15/19 11:45 02/15/19 11:45 - Assessment and Plan (1) Multifocal pneumonia Current Visit: Yes Status: Acute (2) Sepsis Current Visit: Yes Status: Acute (3) DVT prophylaxis Current Visit: Yes Status: Acute - Time Spent with Patient Total time spent is greater than 50% in coordination of care (as documented) at patient's floor/unit and/or counseling patient: Internal Medicine: Result - Labs CBC & Chem 7: 02/15/19 04:33 02/15/19 04:33 Labs: Short CBC 02/15/19 Range/Units 04:33 WBC 15.7 H (4.3-11.1) K/mcL Hgb 13.5 (12.9-16.9) g/dL Hct 37.3 L (37.5-50.1) % Plt Count 284 (140-400) K/mcL Neutrophils # 12.1 H (1.6-8.9) K/mcL BMP 02/15/19 04:33 Sodium 140 Potassium 3.7 Chloride 106 Carbon Dioxide 28 BUN 23 H Creatinine 0.80 Glucose 90 Calcium 8.9 - ABG Interpretation ABG results: PT/INR, D-dimer PT 15.9 Seconds (9.4-12.1) H 02/11/19 08:06 D-Dimer 915 ng/mLFEU (0-500) H 02/10/19 19:27 Consult Discharge Plan - Plan Referrals: Priyanka Mukherjee, LEAN ENGINEER [Primary Care Provider] - - Attending Attestation I examined this patient and my medical decision-making was reviewed with the Resident Physician Dr Pagan. I agree with the documented findings, disposition and treatment plan as described except to the extent set forth below. Mr Nam is admitted with sepsis 2/2 pna. awake, no family present. sob improved today. is not sob on room air. ease of breathing improved and cough finally improving, still nonproductive, no fever or chills later this morning did become sob with ambulation gen- alert, awake,appears stated age cv- reg rate and reg rhythm, normal s1,s2, no murmurs appreciated lungs- improved aeration throughout, bibasilar diminished bs with no wheezing or crackles, no rhonchi, normal resp effort on room air neuro- AAOx3 1.Sepsis 2/2 pna, organism unknown, improving leukocytosis, HR intermittently >90 still qualifies as sepss today- BP normotensive off fluids, cont abx as below 2. Multifocal pna, organism not known- zosyn + azithro, cont nebs , oral steroids beginning today 3. Emphysema on CT scan- outpt pfts upon dc as this is new diagnosis 4. Incidental hepatic suspected small cysts, on review he had CT scan a/p in 01/2017 with same finding- will recommend pcp follow up outpt for this chronic issue further diagnoses and plan as noted by resident <Nevaeh Pagan - Last Filed: 02/15/19 13:25> Hospitalist Progress Note - Encounter Date of Encounter: 02/15/19 Time of Encounter: 09:00 - Subjective Interval History: Patient reports cough improved and shortness of breath only with exertions. He reports mild epigastric burning pain improved with Tums last night. 1050 Paged by RN as patient experienced dyspnea with exertion but vitals showed hypoxia at 91% on RA. HR 94 138/92. He complains of coughing fits until nauseous but no vomiting. Patient agrees to delay discharge until tomorrow - Exam Vitals: Temp Pulse Resp BP Pulse Ox 98.0 F 77 18 138/92 90 02/15/19 07:58 02/15/19 07:58 02/15/19 07:58 02/15/19 07:58 02/15/19 07:58 Exam: General: pleasant, in no acute distress, A&Ox3 Head: atraumatic, normocephalic, Mouth: mucous membranes moist, no mucosal lesions, no obvious caries Cardiac: RRR, no murmurs, no gallops Respiratory: mild wheeze with coarse breath sounds improved from yesterday, no rales Abdomen: BSx4, Soft, not distended, no tenderness, no masses, no organomegaly Extremities: pulses intact, no pedal edema, normal ROM Psychiatric: normal mood and affect, intact memory, good judgement and insight - Assessment and Plan (1) Sepsis Current Visit: Yes Status: Acute Assessment and Plan: Sepsis due to PNA . SIRs of tachycardia and febrile on admission but lactic acid wnl Hypotensive earlier in admit responsive to IVF bolus but resolved and now normatensive . IVF maintenance discontinued yesterday. Oxygen titrated down to room arm. Rocephin discontinued after poor response with two days . Vanc discontinued after once day with MRSA swab negative - continue zosyn day 3 - continue azithromycin day 4 - prn tesselon pearls for cough - sputum culture never collected - blood cultures NGTD - Urine antigens negative for legionella and strep pneumo - influenza negative - respiratory panel negative Possible discharge tomorrow pending clinical course- plan to walk test later today (2) Multifocal pneumonia Current Visit: Yes Status: Acute Assessment and Plan: see above (3) Tobacco use disorder, continuous Current Visit: Yes Status: Chronic Assessment and Plan: Quite with out medications (4) COPD (chronic obstructive pulmonary disease) Current Visit: Yes Status: Suspected Assessment and Plan: Suspect based on emphysematous changed on CT - continue xopenox prn - continue prednisone 40 mg today with short taper on discharge - six minutes walk test - Follow up with PCP on discharged for follow up Chest XR, PFT and WALI evaluation 02-10-19 CTA Chest multifocal pneumonia . Left upper lobe ground-glass may be smoking-related lung injury with paraseptal emphysema 02-13-19 XR Chest Diffuse bilateral airspace opacities consistent with multifocal pneumonia, left more than right. (5) WALI (obstructive sleep apnea) Current Visit: Yes Status: Suspected Assessment and Plan: Witnessed apnea at home with nightly destat while admitted - as above (6) Hepatic cyst Current Visit: Yes Status: Suspected Assessment and Plan: Incidental finding on CT previously seen - follow up with PCP out patient 02-10-19 CTA chest Scattered too small to characterize hepatic hypodensities, probably tiny cysts. DVT Prophylaxis: sq heparin - Time Spent with Patient Total time spent is greater than 50% in coordination of care (as documented) at patient's floor/unit and/or counseling patient: Internal Medicine: Result - Labs CBC & Chem 7: 02/15/19 04:33 02/15/19 04:33 Labs: Short CBC 02/15/19 Range/Units 04:33 WBC 15.7 H (4.3-11.1) K/mcL Hgb 13.5 (12.9-16.9) g/dL Hct 37.3 L (37.5-50.1) % Plt Count 284 (140-400) K/mcL Neutrophils # 12.1 H (1.6-8.9) K/mcL BMP 02/15/19 04:33 Sodium 140 Potassium 3.7 Chloride 106 Carbon Dioxide 28 BUN 23 H Creatinine 0.80 Glucose 90 Calcium 8.9 - ABG Interpretation ABG results: PT/INR, D-dimer PT 15.9 Seconds (9.4-12.1) H 02/11/19 08:06 D-Dimer 915 ng/mLFEU (0-500) H 02/10/19 19:27 <Mecca Goff M - Last Filed: 02/15/19 12:11> (2) Sepsis Qualifiers: Sepsis type: sepsis due to unspecified organism Qualified Code(s): A41.9 - Sepsis, unspecified organism <Nevaeh Pagan M - Last Filed: 02/15/19 13:25> (1) Sepsis Qualifiers: Sepsis type: sepsis due to unspecified organism Qualified Code(s): A41.9 - Sepsis, unspecified organism (4) COPD (chronic obstructive pulmonary disease) Qualifiers: COPD type: unspecified COPD Qualified Code(s): J44.9 - Chronic obstructive pulmonary disease, unspecified
[2019-02-15] MEDS: Azithromycin 500 MG in D5% in Water 250 ML IVPB SCH (20:26)
[2019-02-15] MEDS ORDERED: Levalbuterol Neb 0.63 MG/3 ML IH PRN (20:58)
[2019-02-16] MEDS: *HR* Heparin 5,000 UNIT/ML VIAL SQ SCH ×2 (04:13→09:07)
[2019-02-16] MEDS: Piperacillin/Tazobactam 3.375 GM in 0.9 % Sodium Chloride Mini Bag 100 ML IVPB SCH (06:14)
[2019-02-16 06:30] LABS: Basophils # 0.1 K/mcL (0.0-0.2); Basophils % 0.4 %; Eosinophils # 0.1 K/mcL (0.0-0.6); Eosinophils % 0.7 %; Hematocrit 38.2 % (37.5-50.1); Hemoglobin 14.1 g/dL (12.9-16.9); Immature Granulocytes % 2.2 % (0-4); Lymphocytes # 2.7 K/mcL (0.6-4.6); Lymphocytes % 19.7 %; Mean Corpuscular Hemoglobin 34.8 pg (28.0-33.3); Mean Corpuscular Volume 94.3 fL (83.0-100.0); Mean Platelet Volume 8.8 fL (9.4-12.4); Monocytes % 7.7 %; Platelet Count 240 K/mcL (140-400); Red Blood Count 4.05 M/mcL (4.19-5.50); Red Cell Distribution Width 15.6 % (11.5-14.5); Segmented Neutrophils % 69.3 %
[2019-02-16 06:31] LABS: Neutrophils # 9.4 K/mcL (1.6-8.9)
[2019-02-16 06:44] LABS: Mean Corpuscular HGB Conc 36.9 g/dL (31.6-35.5)
[2019-02-16 07:38] VITALS: BP 155/93
--- NOTE | 2019-02-16 07:39 | Discharge Summary ---
<Mecca Goff - Last Filed: 02/16/19 12:40> - NOTES TO OUTPATIENT PROVIDER Notes to Outpatient Provider: Incidental hepatic suspected small cysts, on review he had CT scan a/p in 01/2017 with same finding- will recommend pcp follow up outpt for this chronic issue Orders not resulted at time of discharge: Pending orders 02/11/19 06:32 ECG 12 lead ECG [ECG] Routine 02/11/19 06:38 Culture,Sputum with Gram Stain [RM] Stat 02/13/19 07:56 Culture,Sputum with Gram Stain [RM] Stat Date of Encounter: 02/16/19 - Discharge Diagnosis (1) Multifocal pneumonia Status: Acute (2) Sepsis Status: Resolved Qualifiers: Sepsis type: sepsis due to unspecified organism Qualified Code(s): A41.9 - Sepsis, unspecified organism (3) DVT prophylaxis Status: Acute Hospital course: Mr. Nam is a 43 year old male - Time Spent with Patient Total time spent providing and/or coordinating discharge services: - Discharge Medications Prescriptions: New Levalbuterol [Xopenex INH] 1 puff IH PRN PRN #1 inhaler PRN Reason: Shortness Of Breath/Wheezing predniSONE [PredniSONE] 10 mg PO DAILY #6 tablet Amoxicillin/Clavulanate [Augmentin] 500 mg PO BIDWM #6 tablet Home Medications: Amoxicillin/Clavulanate [Augmentin] 500 mg PO BIDWM #6 tablet 02/16/19 [Rx] Levalbuterol [Xopenex INH] 1 puff IH PRN PRN #1 inhaler 02/16/19 [Rx] predniSONE [PredniSONE] 10 mg PO DAILY #6 tablet 02/16/19 [Rx] Allergies/Adverse Reactions: Allergy/AdvReac Type Severity Reaction Status Date / Time hydrocodone [From Vicodin] Allergy Difficulty Verified 02/10/19 21:46 Breathing Date of admission: 02/11/19 07:49 Primary care physician: Priyanka Mukherjee CNP Consults: 02/11/19 18:38 Consult to Respiratory Therapy [CONS] Routine Reason for Consult: acapella Call Completed: No 02/12/19 08:07 Consult to Nurse Navigator [CONS] Routine Comment: pneumonia - Constitutional Vitals: Temp Pulse Resp BP Pulse Ox 98.0 F 70 18 155/93 93 02/16/19 07:36 02/16/19 07:36 02/16/19 07:36 02/16/19 07:36 02/16/19 07:36 - Patient Status Disposition: Home, Self-Care Condition: Good - Discharge Instructions Follow Up With: Priyanka Mukherjee CLINICAL STATISTICAL PROGRAMMER [Primary Care Provider] - 02/22/19 10:35 am (Please follow up as schedule...) Additional Instructions: Patient instructed to follow up with PCP for repeat chest xr in 4 wks. Suspect copd and WALI undiagnosed thus follow up with further testing. Please evaluate for HTN as BP high during admit - Attending Attestation I examined this patient and my medical decision-making was reviewed with the Resident Physician Dr Pagan. I agree with the documented findings, disposition and treatment plan as described except to the extent set forth below. Mr Nam is admitted with sepsis 2/2 pna. awake, feeling well, no sob on ambulation, no fevers or chills. cough cont to improve, dc plan discussed and pt without questions. gen- alert, awake,appears stated age, well appearing cv- reg rate and reg rhythm, normal s1,s2, no le edema lungs- improved aeartion throughou, no wheezing or crackles, no rhonchi, normal resp effort on room air neuro- AAOx3 1.Sepsis 2/2 pna, organism unknown,resolved 2. Multifocal pna, organism not known- completed azithro, augmentin to complete abx course, steroid taper, inhaler 3. Emphysema on CT scan- outpt pfts upon dc as this is new diagnosis 4. 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 Suspect copd and WALI undiagnoised thus follow up with further testing. Please evaluate for HTN as BP high during admit Orders not resulted at time of discharge: Pending orders 02/11/19 06:32 ECG 12 lead ECG [ECG] Routine 02/11/19 06:38 Culture,Sputum with Gram Stain [RM] Stat 02/11/19 08:06 Culture,Blood [BC] Stat 02/13/19 07:56 Culture,Sputum with Gram Stain [RM] Stat 02/17/19 04:00 Complete Blood Count [HEME] AM 0400 Date of Encounter: 02/16/19 Time of Encounter: 09:23 - Discharge Diagnosis (1) Sepsis Priority: Primary Status: Resolved Qualifiers: Sepsis type: sepsis due to unspecified organism Qualified Code(s): A41.9 - Sepsis, unspecified organism (2) Multifocal pneumonia Priority: Secondary Status: Acute (3) Tobacco use disorder, continuous Priority: Secondary Status: Chronic (4) COPD (chronic obstructive pulmonary disease) Priority: Secondary Status: Suspected Qualifiers: COPD type: unspecified COPD Qualified Code(s): J44.9 - Chronic obstructive pulmonary disease, unspecified (5) WALI (obstructive sleep apnea) Priority: Secondary Status: Suspected (6) Hepatic cyst Priority: Secondary Status: Suspected Hospital course: Mr. Nam is a 43 year old male with 40 pk ys smoker presents with fever, cough and shortness of breath. He reproting coughing fits untill vomiting. In ED tachycardiac 112, tachypneic 26 and hypoxic at 91 % RA improved on 2 L . Concern for PE thus d dimer elevated at 915 lead to CTA of echt that showed on PE but multifocal PNA with largest opacity in LLL and emphysematous changes. Elevated WBC 22.4. Started on rocephin and azithromycine. Admitted to hospital on 02-11 for Sepsis due to community aquired PNA woth vanc added. He became hypo tensive but was responsive to fluids with agressive hydrationof multiple bolus on top of IVF maintenance. Blood cultures obtained with no growth. Urine aitgens hnegative for legionella nd strep pneumo. rapid influenza negative . His MRSA swab was negative and abx deescalated to discontinue vanc and Rocephin and start zosyn. Repeat chest XR on 02-13 showed stable PNA. Suspect undiagnosed COPD and WALI with hypoxia and witnessed apneic spells - thus steriod started at 60 mg and tapered to 40mg during say. He required oxygen supplemented until titrated off more than 24 hours before discharge. In total received two days of rocpehin, one day vanc, 7 days of azithromycin, and 5 days of zosyn.On days of discharge he was able to walk halways with out hypoxia. Discharged home with 3 days of augmentin and short steroid taper. During admission patient was committed smoking and did not require nicotine patch. Instructed to follow up with PCP for follow up chest XR and possible undiagnosed HTN, COPD & WALI Discharge discussed with: patient, family Time spent discussing smoking cessation with patient: more than 10 minutes - Time Spent with Patient Total time spent providing and/or coordinating discharge services: Date of admission: 02/11/19 07:49 Primary care physician: Priyanka Mukherjee CNP Consults: 02/11/19 18:38 Consult to Respiratory Therapy [CONS] Routine Reason for Consult: acapella Call Completed: No 02/12/19 08:07 Consult to Nurse Navigator [CONS] Routine Comment: pneumonia Discharging clinician: Nevaeh Pagan Anticipated date of discharge: 02/16/19 - Constitutional Vitals: Temp Pulse Resp BP Pulse Ox 98.0 F 70 18 155/93 93 02/16/19 07:36 02/16/19 07:36 02/16/19 07:36 02/16/19 07:36 02/16/19 07:36 General appearance: Present: cooperative, mild distress, A&O X 3, pleasant, answers questions appropriately Exam: Sitting comfortable at side of bed and able to capable ambulate on own with out hypoxia - Head Head exam: Present: atraumatic, normal inspection, normocephalic - Eye Eye exam: Present: EOMI, normal appearance - ENT ENT exam: Present: mucous membranes moist, normal external ear exam, normal oropharynx - Respiratory Respiratory exam: Present: wheezes. Absent: respiratory distress, rhonchi Additional comments: coarse breath sounds on left lobes improved - Cardiovascular Cardiovascular exam: Present: diastolic murmur, RRR, systolic murmur - GI/Abdominal GI/Abdominal exam: Present: soft. Absent: mass, tenderness - Extremities Exam Extremities exam: Present: full ROM, radial pulses palpable and symmetrical. Absent: pedal edema, tenderness - Back Exam Back exam: Present: full ROM. Absent: rash noted, tenderness - Neurological Exam Neurological exam: Present: altered, normal gait, oriented X3, no focal deficits - Psychiatric Psychiatric exam: Present: normal affect, normal mood - Skin Skin exam: Present: intact. Absent: abrasion, rash - Patient Status Functional capacity at discharge: independent ambulation Overall status at discharge: patient is progressing back to baseline - Diet and Activity Activity: increase activity as tolerated, return to work once cleared by your PCP/specialist Diet: advance to your usual diet
[2019-02-16] MEDS: predniSONE 20 MG TABLET PO SCH (09:05)
[2019-02-16] MEDS ORDERED: Azithromycin 500 MG in D5% in Water 250 ML IVPB ONE (09:34)
[2019-02-16] MEDS ORDERED: Azithromycin 250 MG TABLET PO ONE (10:37)
== END 2019-02-16 11:23 | disposition home or self-care (01) | DRG 871 ==
LOC: 2SOUTHHOLD 18:27 → EMEROOARM 18:27 → SUATTDRO 22:05 → 2SOUTHHOLD 23:15 → 2ANU 02-13 09:02
PROVIDERS: ADMIT Pediatrics; ATTEND Internal Medicine